=== PATIENT | female | born 1955 | race Caucasian/White ===

== ENCOUNTER → 2020-03-30 15:27 | Outpatient (CLI) | payer BC, SELFPAY ==
--- NOTE | ~2020-03-30 | MM_ITS ---
EXAMINATION: MM screening [facility] BI w rachell HISTORY: Screening mammogram TECHNIQUE: Craniocaudal and mediolateral oblique 3-D tomosynthesis images were obtained and synthetic 2-D images were generated. CAD analysis was submitted and interpreted. COMPARISON: 08/20/2008, 10/01/2004 BREAST PARENCHYMAL COMPOSITION: The breasts are almost entirely fatty. FINDINGS: A stable mass of the lower left breast has the appearance of an intramammary lymph node in this considered benign given the lack of interval change. There is no evidence of suspicious mass, ca lcification, or architectural distortion to suggest malignancy in either breast. There has been no buenrostro spicious interval change. IMPRESSION: 1. No mammographic evidence of malignancy. 2. Recommend routine screening mammography in one year. BI-RADS Category 2: Benign finding(s). Reviewed, dictated and finalized at location A. ER
== END ==
PROVIDERS: PCP Internal Medicine; Visit Provider Internal Medicine
DX: Z12.31 Encounter for screening mammogram for malignant neoplasm of breast (principal)
CPT/HCPCS: 77063; 77067

== ENCOUNTER 2020-04-30 10:58 | Outpatient (NON) | payer MEDICARE, SELFPAY ==
[2020-04-30 22:00] LABS: SARS-CoV-2 RNA PCR Positive
== END 2020-04-30 10:59 ==
PROVIDERS: PCP Internal Medicine; Visit Provider Internal Medicine
DX: U07.1 COVID-19 (principal)
CPT/HCPCS: 87635; C9803; U0003

== ENCOUNTER → 2020-08-13 15:31 | Outpatient (CLI) | payer MEDICARE, SELFPAY ==
--- NOTE | ~2020-08-13 | XR_ITS ---
XR knee RT 3V 08/13/2020 15:51 Indication: Right knee pain Procedure: 3 views right knee Comparison: . No prior studies for comparison. Findings: Mild tricompartment osteoarthritis of the right knee. No significant joint effusion. No for eign bodies. No acute fracture or traumatic malalignment. Impression: 1: Mild tricompartment osteoarthritis of the right knee. Reviewed, dictated and finalized at location B. Impression: 1: Mild tricompartment osteoarthritis of the right knee.
== END ==
PROVIDERS: PCP Internal Medicine; Visit Provider Internal Medicine
DX: M17.11 Unilateral primary osteoarthritis, right knee (principal)
CPT/HCPCS: 73562

== ENCOUNTER → 2021-02-08 16:20 | Outpatient (CLI) | payer MEDICARE, SELFPAY ==
--- NOTE | ~2021-02-08 | XR_ITS ---
XR foot RT min 3V DATE: 02/08/2021 16:31 INDICATION: Right foot pain. No injury. TECHNIQUE: 4 views COMPARISON: None FINDINGS: There is prominent plantar and posterior calcaneal enthesopathy; no associated periostitis or erosive change. There is mild osteophyte is at the first metatarsophalangeal joint. Osteoarthritic changes are noted at the interphalangeal joints. No fracture, dislocation, periosteal reaction or bone destruction is evident. IMPRESSION: Prominent plantar and posterior calcaneal enthesopathy Osteoarthritis at the first metatarsophalangeal joint, interphalangeal joints Reviewed, dictated and finalized at location B.
== END ==
PROVIDERS: PCP Internal Medicine; Visit Provider Internal Medicine
DX: M79.671 Pain in right foot (principal); M77.31 Calcaneal spur, right foot
CPT/HCPCS: 73630

== ENCOUNTER 2021-03-04 13:20 | Outpatient (CLI) | payer MEDICARE, SELFPAY ==
--- NOTE | ~2021-03-04 | US_ITS ---
EXAMINATION: US right upper quadrant DATE: 03/04/2021 14:16 INDICATION: Epigastric abdominal pain. TECHNIQUE: Multiple grayscale and Doppler ultrasound images of the abdomen were obtained. COMPARISON: None FINDINGS: The visualized portions of the head, body, and tail of the pancreas are normal. The liver i s normal without focal lesion. No liver surface nodularity. There is normal flow in main portal vein. The gallbladder is normal in size and contains gallstones. No gallbladder wall thickening or sonogra phic Gavin sign. The common duct is normal and measures 4 mm. IMPRESSION: 1. Cholelithiasis. No evidence of acute cholecystitis. Reviewed, dictated and finalized at location A.
--- NOTE | ~2021-03-04 | US_ITS ---
EXAMINATION: US aorta [facility] scrn DATE: 03/04/2021 14:17 INDICATION: Abdominal aortic aneurysm screening. TECHNIQUE: Grayscale, color Doppler, and pulsed Doppler images of the aorta and common iliac arteries were obtained. COMPARISON: None. FINDINGS: The aorta is normal in caliber. The right common iliac artery is normal in caliber. The left common i liac artery is normal in caliber. IMPRESSION: 1. No abdominal aortic aneurysm. Reviewed, dictated and finalized at location A.
== END 2021-03-04 13:21 | disposition home or self-care (01) ==
PROVIDERS: PCP Internal Medicine; Visit Provider Internal Medicine
DX: R10.13 Epigastric pain (principal); R11.10 Vomiting, unspecified; K80.20 Calculus of gallbladder without cholecystitis without obstruction
CPT/HCPCS: 76705; 76706

== ENCOUNTER 2021-03-23 09:52 | Outpatient (CLI) | payer MEDICARE, SELFPAY ==
--- NOTE | 2021-03-23 09:59 | ECG_ITS ---
Measurements Intervals [place] Rate: 64 P: 42 UT: 174 QRS: -15 QRSD: 102 T: 23 QT: 391 QTc: 405 Interpretive Statements SINUS RHYTHM POOR R WAVE PROGRESSION, ANTERIOR LEADS BORDERLINE T WAVE ABNORMALITY- ANTEROLATERAL LEADS BORDERLINE ECG Electronically Signed On 03-23-2021 11:08:45 [employer] INVESTIGATOR by Evangelista Naranjo D.O.
[2021-03-23 10:28] LABS: Amylase 92 U/L (30-110); Anion Gap 8 mmol/L (8-16); Blood Urea Nitrogen 20 mg/dL (7-17); Calcium 9.6 mg/dL (8.4-10.2); Carbon Dioxide 33 mmol/L (22-30); Chloride 100 mmol/L (98-107); Estimated Glomerular Filt Rate > 60; Glucose 99 mg/dL (65-110); Lipase 85 U/L (23-300); Potassium 3.3 mmol/L (3.4-5.0); Sodium 141 mmol/L (137-145)
== END 2021-03-23 09:53 | disposition home or self-care (01) ==
LOC: ANHSURGERY 09:56
PROVIDERS: Anesthesiology; PCP Internal Medicine; Visit Provider Surgery
DX: Z01.818 Encounter for other preprocedural examination (principal); K80.20 Calculus of gallbladder without cholecystitis without obstruction; I10 Essential (primary) hypertension
CPT/HCPCS: 36415; 80048; 82150; 83690; 86850; 86900; 86901; 93005

== ENCOUNTER 2021-03-31 00:45 | Day surgery (SDC) | payer MEDICARE, SELFPAY ==
[2021-03-22 13:27] VITALS: BMI 38.0
--- NOTE | 2021-03-22 14:39 | PC.NURSE ---
Report to the Outpatient Waiting Room, entrance under the green pavilion located off [facility], at time __1000 on date __03/31/21 . OR Time: __1200 . - You and your visitor will be asked a series of questions to screen for COVID 19 for your protection. - A mask is required within the hospital. - Only one visitor is allowed at this time. Patient visitors will be guided where to wait when not with patient. Preoperative COVID Testing Requirements: No COVID Test needed if: (proof is required; if not received patient will have Rapid Test prior to entry) - Patient has received COVID Vaccine at least 14 days prior to procedure date or - Patient has positive COVID test result within last 90 days of surgery date. COVID Test needed if above criteria is not met If not COVID vaccinated a COVID test must be conducted within 72 hours of surgery and patient is asked to isolate self from time of testing until procedure. You will go to the [facility] for your COVID testing. The [facility] is located at the corner of [address] [facility]. You will only be called if COVID results are positive and your surgeon may reschedule your elective surgery date. Patients may have clear liquids (water, carbonated beverages, clear teas, apple juice) until 3 hours prior to surgery with a maximum of 20 ounces. - No food from midnight until time of surgery - Infants may have breast milk until 4 hours before surgery, infant formula 6 hours prior to surgery. - Children will be allowed to drink immediately following surgery. If applicable, please bring a bottle or sippy cup to assist with drinking. Juice, water, soda, and popsicles are readily available. For infants on formula, please bring formula the day of surgery. Pacifiers are allowed. Take the following medications with a SIP of water the morning of surgery: ____NONE Medications to discontinue per physician _ALL VITAMINS AND SUPPLEMENTS 3 DAYS PRE OP Date to take last dose_03/27/21 Please no make-up, nail [place], hairspray, perfume, deodorant, or body powder the day of surgery. No jewelry (including any body piercings) or valuables the day of surgery, leave them at home. Please take a shower or bath the night before, or the morning of, surgery with an antibacterial soap. Wear comfortable, loose fitting clothing. Children are encouraged to wear pajamas. - Jewelry must be removed prior to entering the operating room. Rings and piercings that are not removed may be cut off. - The hospital will not accept responsibility for valuables. - Please leave all valuables, including medications, at home the day of surgery. HIBICLENS SHOWER MORNING OF SURGERY If you are going home after surgery, a licensed bull driver must drive you home. - NO public transportation without another adult. - We recommend that an adult stay with you for 24 hours following discharge. - We also recommend that you do not drive, make important decision, drink alcoholic beverages, or take any drugs that were not prescribed by your health care provider for at least 24 hours after your discharge time. For Pediatric surgeries, we recommend two adults accompany the child home (only one inside the building at this time). Follow any additional instructions given to you from your surgeon. Telephone instructions given to _PATIENT and asked if any additional questions and then verbalized understanding. Patient advised to call surgeon office or pre surgery nurse liaison [phone] if any additional questions.
[2021-03-31] VITALS (10 sets, daily range): BP systolic 124–167; BP diastolic 64–84; PULSE 49–73; RESP 11–16; TEMP 36–36.2; O2SAT 93–100
[2021-03-31] MEDS: ACETAMINOPHEN 500 MG TABLET 1000 MG PO (10:22)
[2021-03-31] MEDS: KETOROLAC 15 MG/ML VIAL (*BKC) IV PUSH (10:23)
[2021-03-31] MEDS: LACTATED RINGERS 1,000 ML 30 ML IV CONT ×2 (10:31→13:06)
--- NOTE | 2021-03-31 10:52 | P.PNAN_ITS ---
Anes - Initial Pre Proc Eval Procedure: Operation Date: 03/31/21 12:00 Proposed Procedures p Laparoscopic Cholecystectomy - Tejal Howard MD Date/Time: 03/31/21 10:52 Surgeon: Tejal Howard MD Pre Op Diagnosis: chronic cholecystitis with stones Patient Data Age: 65 Gender: F Height: 1.68 m Weight: 107.05 kg Allergies Allergy/AdvReac Type Severity Reaction Status Date / Time No Known Allergies Allergy Verified 03/22/21 13:12 Home Medications Medication Instructions Recorded Confirmed Type albuterol sulfate 90 mcg/actuation 1 inhalation INHALATION Q4H PRN 01/14/20 03/22/21 History aerosol inhaler hydrochlorothiazide 25 mg tablet 25 mg PO DAILY #90 tablet 01/19/21 03/22/21 Rx biotin 5 mg PO DAILY 03/22/21 03/22/21 History glucos sul [id number]-Mn 1 cap PO DAILY 03/22/21 03/22/21 History [Glucosamine Chondroitin] Patient hx anesthesia problems: none Family hx anesthesia problems: none Results Review: All pre-operative results and documents have been reviewed as part of the pre-operative evaluation. [facility] Past Medical History Medical History Essential (primary) hypertension Surgical History Surgical History H/O: hysterectomy History of thumb surgery Family History Family History Mother Hypertension Uterine cancer Sibling Asthma Father , Age 84 Heart problem Dementia Malignant neoplasm of prostate Social History Social History Smoking status: Never smoker Alcohol intake: current Living arrangements: with family Spiritual care concerns: No Anes - Eval Final PreProcedure Day of Procedure 03/31/21 10:52 Patient weight: obese Heart: regular rate and rhythm Lungs: clear to auscultation Airway: Mallampati scale class III Neurological: alert and oriented Last oral intake: >/= 8 hours ASA classification: III Emergent: no Anesthetic plan: proceed Anesthesia type and monitoring: general ETT and standard monitoring Results Review: All pre-operative results and documents have been reviewed as part of the pre-operative evaluation. Informed Consent: The patient's anesthetic plan and its attendant risks and benefits were discussed with the patient/family/POA. Questions were solicited and answers provided to the satisfaction of the patient/family/POA.
--- NOTE | 2021-03-31 11:32 | WPDHPUPDATE1 ---
History and Physical Update Update Date/Time: 03/31/21 11:32 History and Physical has been reviewed, including an updated exam of the patient. There are NO changes in the patient's condition. Risks, benefits, and alternatives have been discussed and questions answered. Patient agrees to proceed with procedure.
[2021-03-31] MEDS: BUPIVACAINE HCL 0.5% PF 30 ML VIAL INFILTRATE (12:00)
[2021-03-31] MEDS: ceFAZolin 2 GM/D5W 50 ML 2 GM/50 ML BAG IVPB (12:00)
--- NOTE | 2021-03-31 12:53 | W.PM.PROC2 ---
Procedure Note - Detailed Date of Procedure 03/31/21 Pre-op Diagnosis chronic cholecystitis with stones Post-op Diagnosis same Procedure Performed Laparoscopic cholecystectomy Surgeon Tejal Howard MD Anesthesia general Indications 65-year-old female presented to the office complaining of postprandial right upper quadrant abdominal pain associated with nausea and vomiting. Workup including imaging significant for chronic cholecystitis, cholelithiasis. Findings Cholecystitis with cholelithiasis Description of Procedure The patient was taken to the operating room placed in the supine position. After adequate induction of general anesthesia, the patient was prepped and draped in normal sterile fashion. A time-out was then performed to verify the patient's identity as well as the procedure being performed. I then made a 5 mm incision in the infraumbilical region. Through this, a Veress needle was placed into the peritoneal cavity and CO2 gas was then insufflated. After adequate pneumoperitoneum was achieved, the Veress needle was removed and a 5 mm optiview trocar was placed through this incision under direct visualization. I then placed the laparoscope through this trocar site and under direct visualization placed a further 12 mm subxiphoid port as well as 2 additional 5 mm ports in the right upper abdomen. The gallbladder was then identified and was noted to be moderately inflamed and distended. I was able to place a grasper at the dome of the gallbladder and this was retracted anterior and cephalad up over the liver. A 2nd retractor was then placed at the infundibulum and retracted laterally, this allowed visualization of the triangle of Calot. I then was able to visualize the cystic duct in its entirety from its proximal insertion into the gallbladder, to its distal junction with the common hepatic/common bile duct junction. At this point, I carefully skeletonized the proximal cystic duct with the [place] dissector. I then clipped and transected the proximal cystic duct. Next I visualized the cystic artery. Again the artery was skeletonized, clipped, and transected. I then used the Bovie cautery to take down the peritoneal attachments of the gallbladder off the liver bed. This was somewhat difficult given the amount of inflammation in the posterior space. Once the gallbladder specimen was completely detached, an endo-pouch was placed through the 12 mm port site. I then placed the gallbladder specimen into the Endo pouch and removed the endo-pouch from the 12 mm port site. The specimen will now be sent to pathology for further review. I then copiously irrigated the right upper quadrant. Hemostasis was noted in the liver bed, the clips were noted to be in good position on both the cystic duct stump and the cystic artery stump. No other pathology was noted in the right upper quadrant. I then moved the laparoscope to the subxiphoid port. No iatrogenic injury or other pathology was noted in the lower abdomen. I then closed the 12 mm trocar site under direct visualization using the Edison cone and 0 Vicryl suture. At this point, the abdomen was desufflated and all ports removed. All port sites were then closed with 4.O Monocryl subcuticular sutures. Dermabond was placed on each incision. The patient tolerated the procedure well, was extubated in the operating room postoperative and will be transferred to the recovery room in stable condition Estimated Blood Loss 5 Drains No Packing No Pathology yes Complications No immediate complications Condition stable Disposition PACU
[2021-03-31] MEDS: fentaNYL CITRATE INJ (*CRX) 100 MCG/2 ML VIAL 25 MCG IV PUSH ×4 (13:29→13:57)
--- NOTE | 2021-03-31 14:17 | SUR.PHASEI ---
1405; DR SAINI AT BEDSIDE. PT HAVING NSR AND SINUS ARRYTHMIA ON MONITOR. PT ASYMPTOMATIC. NO NEW ORDERS AT THIS TIME.
--- NOTE | 2021-03-31 14:38 | SUR.PHASEI ---
PT STATES SHE IS DOING BETTER . RATES PAIN 5/10. DOESNT WANT ANY MORE PAIN MED AT THIS TIME. READY TO SEE TRISTIN.
[2021-03-31] MEDS: oxyCODONE HCL (*CRX) 5 MG TAB IR PO (15:02)
[2021-03-31] MEDS: ONDANSETRON INJ 4 MG/2 ML VIAL IV PUSH (15:43)
== END 2021-03-31 15:52 | disposition home or self-care (01) ==
PROVIDERS: PCP Internal Medicine; Visit Provider Surgery
PROC: 0FT44ZZ Resection of Gallbladder, Percutaneous Endoscopic Approach (ICD-10-PCS; CPT 47562; principal; 2021-03-31 12:00)
DX: K80.10 Calculus of gallbladder with chronic cholecystitis without obstruction (principal); I10 Essential (primary) hypertension; Z79.51 Long term (current) use of inhaled steroids; E66.9 Obesity, unspecified; Z68.38 Body mass index [BMI] 38.0-38.9, adult
CPT/HCPCS: 47562; 36415; 80048; 82150; 83690; 86850; 86900; 86901; 88304; 93005; A9270; J0690; J1100; J1885; J2250; J2405; J2704; J2710; J3010; J7030; J7120

== ENCOUNTER 2022-02-03 10:22 | Outpatient (CLI) | payer MEDICARE, SELFPAY ==
[2022-02-03 20:01] LABS: Alanine Aminotransferase 17 U/L (6-35); Albumin Level 4.1 g/dL (3.5-5.1); Alkaline Phosphatase 84 U/L (38-126); Anion Gap 7 mmol/L (8-16); Aspartate Amino Transferase 32 U/L (14-36); Bilirubin,Total 0.7 mg/dL (0.2-1.3); Blood Urea Nitrogen 22 mg/dL (7-17); Calcium 9.2 mg/dL (8.4-10.2); Carbon Dioxide 33 mmol/L (22-30); Chloride 99 mmol/L (98-107); Cholesterol 153 mg/dL (0-200); Estimated Glomerular Filt Rate > 60; Glucose 98 mg/dL (65-110); HDL Direct 49 mg/dL; Potassium 3.2 mmol/L (3.4-5.0); Sodium 139 mmol/L (137-145); Triglycerides 68 mg/dL (<150)
[2022-02-03 20:12] LABS: LDL Cholesterol Direct 89 mg/dL
== END 2022-02-03 10:23 | disposition home or self-care (01) ==
LOC: ANHGOSHLAB 10:24
PROVIDERS: PCP Family Medicine; Visit Provider Family Medicine
DX: I10 Essential (primary) hypertension (principal); Z13.220 Encounter for screening for lipoid disorders
CPT/HCPCS: 36415; 80053; 80061

== ENCOUNTER → 2022-02-03 10:49 | Outpatient (CLI) | payer MEDICARE, SELFPAY ==
--- NOTE | ~2022-02-03 | XR_ITS ---
XR shoulder LT min 2V DATE: 02/03/2022 11:04 INDICATION: Left shoulder anterior pain TECHNIQUE: 4 views COMPARISON: None FINDINGS: No fracture or dislocation, periosteal reaction or bone destruction is evident. There is in ferior spurring at the left acromioclavicular joint. There is calcification in the region of the rota tor cuff which may indicate calcific tendinitis. IMPRESSION: Degenerative spurring at left acromioclavicular joint Possible calcific tendinitis of the left rotator cuff Reviewed, dictated and finalized at location B.
--- NOTE | ~2022-02-03 | XR_ITS ---
XR shoulder RT min 2V DATE: 02/03/2022 11:04 INDICATION: Right shoulder pain TECHNIQUE: 4 views COMPARISON: July 07, 2016 right shoulder FINDINGS: There is mild degenerative spurring at the right acromion clavicular joint. No fracture or dislocation, periosteal reaction or bone destruction or abnormal soft tissue calcifica tion of the right shoulder is evident. IMPRESSION: Mild degenerative change at the right acromioclavicular joint Reviewed, dictated and finalized at location B.
== END ==
PROVIDERS: PCP Family Medicine; Visit Provider Family Medicine
DX: M25.512 Pain in left shoulder (principal); M25.511 Pain in right shoulder; M77.8 Other enthesopathies, not elsewhere classified
CPT/HCPCS: 73030

== ENCOUNTER → 2022-08-22 11:46 | Outpatient (CLI) | payer MEDICARE, SELFPAY ==
--- NOTE | ~2022-08-22 | XR_ITS ---
Right Knee Technique: AP, lateral, and sunrise views were obtained. Clinical History: Pain Findings: No fracture or dislocation is seen. Osseous alignment is anatomic. Mild to moderate tricomp artmental degenerative spurring noted. Soft tissues are unremarkable. No joint effusion is seen. Impression: Mild to moderate tricompartmental degenerative spurring. Reviewed, dictated and finalized at [facility]. Impression: Mild to moderate tricompartmental degenerative spurring.
--- NOTE | ~2022-08-22 | XR_ITS ---
Left Knee Technique: AP, lateral, and sunrise views were obtained. Clinical History: Pain Findings: No fracture or dislocation is seen. Osseous alignment is anatomic. Moderate tricompartmenta l degenerative spurring noted. Soft tissues are unremarkable. No joint effusion is seen. Impression: Moderate tricompartmental degenerative spurring. Reviewed, dictated and finalized at location . Impression: Moderate tricompartmental degenerative spurring.
== END ==
PROVIDERS: PCP Family Medicine; Visit Provider Family Medicine
DX: M25.562 Pain in left knee (principal); M25.561 Pain in right knee; M77.9 Enthesopathy, unspecified
CPT/HCPCS: 73564

== ENCOUNTER → 2023-01-27 13:47 | Outpatient (CLI) | payer MEDICARE, SELFPAY ==
--- NOTE | ~2023-01-27 | MM_ITS ---
EXAMINATION: MM screening [facility] BI w rachell HISTORY: Screening mammogram TECHNIQUE: Craniocaudal and mediolateral oblique 3-D tomosynthesis images were obtained and synthetic 2-D images were generated. CAD analysis was submitted and interpreted. COMPARISON: 03/30/2020 bilateral screening mammogram examination BREAST PARENCHYMAL COMPOSITION: The breasts are almost entirely fatty. FINDINGS: Stable occasional small circumscribed opacities of each breast. There is no evidence of fausto picious mass, calcification, or architectural distortion to suggest malignancy in either breast. Ther e has been no suspicious interval change. IMPRESSION: 1. No mammographic evidence of malignancy. 2. Recommend routine screening mammography in one year. BI-RADS Category 2: Benign finding(s). Reviewed, dictated and finalized at location A.
== END ==
PROVIDERS: PCP Obstetrics & Gynecology; Visit Provider Obstetrics & Gynecology
DX: Z12.31 Encounter for screening mammogram for malignant neoplasm of breast (principal)
CPT/HCPCS: 77063; 77067

== ENCOUNTER 2023-02-23 15:12 | Outpatient (CLI) | payer MEDICARE, SELFPAY ==
[2023-02-23 19:24] LABS: Alanine Aminotransferase 15 U/L (6-35); Albumin Level 4.2 g/dL (3.5-5.1); Alkaline Phosphatase 76 U/L (38-126); Anion Gap 5 mmol/L (8-16); Aspartate Amino Transferase 40 U/L (14-36); Bilirubin,Total 0.8 mg/dL (0.2-1.3); Blood Urea Nitrogen 23 mg/dL (7-17); Calcium 9.2 mg/dL (8.4-10.2); Carbon Dioxide 35 mmol/L (22-30); Chloride 98 mmol/L (98-107); Cholesterol 175 mg/dL (0-200); Estimated Glomerular Filt Rate > 60; Glucose 89 mg/dL (65-110); HDL Direct 47 mg/dL; Potassium 3.3 mmol/L (3.4-5.0); Sodium 138 mmol/L (137-145); Triglycerides 65 mg/dL (<150)
[2023-02-23 19:35] LABS: LDL Cholesterol Direct 96 mg/dL
== END 2023-02-23 15:13 | disposition home or self-care (01) ==
LOC: ANHGOSHLAB 15:14
PROVIDERS: PCP Obstetrics & Gynecology; Visit Provider Family Medicine
DX: Z13.220 Encounter for screening for lipoid disorders (principal); Z13.228 Encounter for screening for other metabolic disorders
CPT/HCPCS: 36415; 80053; 80061

== ENCOUNTER 2023-03-13 15:16 | Outpatient (CLI) | payer MEDICARE, SELFPAY ==
[2023-03-13 16:31] LABS: Hematocrit 37.9 % (37.0-47.0); Hemoglobin 12.5 g/dL (12.0-15.0); Mean Corpuscular Hemoglobin 31.6 pg (26-34); Mean Corpuscular Volume 95.7 fl (80-100); Mean Platelet Volume 11.9 fl (7.4-10.4); Platelet Count Result 229 k/mm3 (150-375); Red Blood Count 3.96 M/mm3 (4.2-5.4); Red Cell Distribution Width 13.2 % (11.5-14.5); White Blood Count 8.5 K/mm3 (4.5-10.0)
[2023-03-13 16:41] LABS: CRP 0.8 mg/dL (<1.0)
[2023-03-13 17:15] LABS: Erythrocyte Sedimentation Rate 43 mm/hr (0-20)
[2023-03-17 20:40] LABS: Immunoglobulin A 495 mg/dL (70-320); TTG IGA AB <1.0 U/mL (<15.0)
== END 2023-03-13 15:17 | disposition home or self-care (01) ==
PROVIDERS: PCP Family Medicine; Visit Provider Nurse Practitioner
DX: K52.9 Noninfective gastroenteritis and colitis, unspecified (principal)
CPT/HCPCS: 36415; 82784; 85027; 85652; 86140; 86364

== ENCOUNTER 2023-03-15 10:49 | Outpatient (CLI) | payer MEDICARE, SELFPAY ==
[2023-03-22 21:12] LABS: Calprotectin, Stool 719 mcg/g; Pancreatic Elastase, Stool >500 mcg/g
== END 2023-03-15 10:50 | disposition home or self-care (01) ==
PROVIDERS: PCP Family Medicine; Visit Provider Nurse Practitioner
DX: K52.9 Noninfective gastroenteritis and colitis, unspecified (principal); R15.2 Fecal urgency; R15.9 Full incontinence of feces; R19.8 Other specified symptoms and signs involving the digestive system and abdomen
CPT/HCPCS: 36415; 82653; 83993; 84443

== ENCOUNTER 2023-04-20 06:11 | Day surgery (SDC) | payer MEDICARE, SELFPAY ==
[2023-04-03 13:41] VITALS: BMI 37.0
--- NOTE | 2023-04-19 16:59 | WPDANESEPPF ---
Anes - Initial Pre Proc Eval Procedure: Operation Date: 04/20/23 08:00 Proposed Procedures p Colonoscopy - Henri Noguera MD Date/Time: 04/19/23 16:59 Surgeon: Henri Noguera MD Pre Op Diagnosis: Noninfective Gastroenteritis and Colitis Patient Data Age: 68 Gender: F Height: 1.68 m Weight: 104 kg Allergies Allergy/AdvReac Type Severity Reaction Status Date / Time No Known Allergies Allergy Verified 04/20/23 06:45 Home Medications Medication Instructions Recorded Confirmed Type glucosamine sulf dipot 1 cap PO DAILY 03/22/21 04/20/23 History chlr,msm,chond 550 mg-C 30 mg-diogo 1 mg capsule (Glucosamine Chondroitin) fluocinolone 0.025 % topical cream 1 applic topical BID #60 grams 02/03/22 04/20/23 Rx latanoprost 0.005 % eye drops 1 drp EACH EYE QPM 02/03/22 04/20/23 History hydrochlorothiazide 25 mg tablet 25 mg PO DAILY #90 tabs 04/18/22 04/20/23 Rx cetirizine 10 mg capsule (All Day 10 mg PO DAILY PRN Allergy Symptoms 03/13/23 04/20/23 History Allergy (cetirizine)) colestipol 1 gram tablet 1 g PO BID #60 tabs 03/13/23 04/20/23 Rx glucosamine sulfate 500 mg tablet 500 mg PO DAILY 03/13/23 04/20/23 History (Cidatrine (glucosamine)) diphenoxylate-atropine 2.5 1 tablet PO TID PRN Diarrhea 04/03/23 04/20/23 History mg-0.025 mg tablet (Lomotil) Patient hx anesthesia problems: none Family hx anesthesia problems: none Results Review: All pre-operative results and documents have been reviewed as part of the pre-operative evaluation. [facility] Past Medical History Medical History (Updated 03/13/23 @ 15:29 by Jeanne Lauren APRN) Borborygmi Chronic diarrhea Diarrhea Essential (primary) hypertension Fecal incontinence Fecal urgency Surgical History Surgical History H/O: hysterectomy History of thumb surgery Hx laparoscopic cholecystectomy 03/31/21 Family History Family History Mother Hypertension Uterine cancer Sibling Asthma Father , Age 84 Heart problem Dementia Malignant neoplasm of prostate Social History Social History Smoking status: Never smoker Alcohol intake: never Substance use: never Substance use type: does not use Lack of Transportation: No Lack of Food: Never True Current Housing: I Have Housing Concerned About Future Housing: No Difficulty Paying Gas/Electric Bills: No Difficulty Paying for Meds: No Currently Unemployed: No Difficulty w/ Childcare or Family Care: No Living arrangements: with family Occupation/Education: retired Spiritual care concerns: No Anes - Eval Final PreProcedure Day of Procedure 04/19/23 16:59 Patient weight: obese Heart: regular rate and rhythm Lungs: clear to auscultation Airway: Mallampati scale class II Neurological: alert and oriented Last oral intake: >/= 8 hours ASA classification: III Emergent: no Anesthetic plan: proceed Anesthesia type and monitoring: general GIVS and standard monitoring Results Review: All pre-operative results and documents have been reviewed as part of the pre-operative evaluation. Informed Consent: The patient's anesthetic plan and its attendant risks and benefits were discussed with the patient/family/POA. Questions were solicited and answers provided to the satisfaction of the patient/family/POA.
[2023-04-20 06:50] VITALS: BP 139/70; PULSE 70; RESP 18; TEMP 36.6; O2SAT 100
[2023-04-20] MEDS: LACTATED RINGERS 1,000 ML 150 ML IV CONT (06:54)
--- NOTE | 2023-04-20 07:48 | PM.HPGS ---
History of Present Illness History of Present Illness Consent: Risks, benefits, and alternatives have been discussed and questions answered. Patient agrees to proceed with procedure. Chief complaint: Noninfective Gastroenteritis and Colitis Narrative: Emerald Shelton is a 68 year old female with ibs but lately with more diarrhea normally after eating, tried different OTC products, she is post cholecystectomy but could not afford cholestyramine. Negative serology for celiac, normal pancreatic elastase, elevated calprotectin in stool. Never had colonoscopy Review of Systems Constitutional: Constitutional: Denies headache(s) and Denies weakness Eyes: Eyes: Denies blurry vision ENT: Reports Normal hearing present, Denies headache(s) and Denies neck pain Cardiovascular: Cardiovascular: Denies chest pain and Denies dyspnea Respiratory: Respiratory: Denies dyspnea Gastrointestinal: Gastrointestinal: Reports no additional gastrointestinal complaints Genitourinary: Genitourinary: Denies dysuria Musculoskeletal: Musculoskeletal: Denies neck pain Integumentary/Breasts: Skin/Breast: Denies dry skin Neurologic: Reports Normal hearing present, Denies headache(s) and Denies weakness Psychiatric: Psychiatric: Denies anxiety Endocrine: Endocrine: Denies change in body appearance Hematologic/Lymphatic: Hematologic/Lymphatic: Denies easy bleeding Allergic/Immunologic: Allergic/Immunologic: Denies urticaria PMFSH Past Medical History Medical History (Updated 03/13/23 @ 15:29 by Jeanne Lauren APRN) Borborygmi Chronic diarrhea Diarrhea Essential (primary) hypertension Fecal incontinence Fecal urgency Surgical History Surgical History (Updated 04/20/23 @ 07:50 by Henri Noguera MD) H/O: hysterectomy History of thumb surgery Hx laparoscopic cholecystectomy 03/31/21 Family History Family History Mother Hypertension Uterine cancer Sibling Asthma Father , Age 84 Heart problem Dementia Malignant neoplasm of prostate Social History Social History Smoking status: Never smoker Alcohol intake: never Substance use: never Substance use type: does not use Lack of Transportation: No Lack of Food: Never True Current Housing: I Have Housing Concerned About Future Housing: No Difficulty Paying Gas/Electric Bills: No Difficulty Paying for Meds: No Currently Unemployed: No Difficulty w/ Childcare or Family Care: No Living arrangements: with family Occupation/Education: retired Spiritual care concerns: No Meds Home Medications and Allergies Home Medications Medication Instructions Recorded Confirmed Type glucosamine sulf dipot 1 cap PO DAILY 03/22/21 04/20/23 History chlr,msm,chond 550 mg-C 30 mg-diogo 1 mg capsule (Glucosamine Chondroitin) fluocinolone 0.025 % topical cream 1 applic topical BID #60 grams 02/03/22 04/20/23 Rx latanoprost 0.005 % eye drops 1 drp EACH EYE QPM 02/03/22 04/20/23 History hydrochlorothiazide 25 mg tablet 25 mg PO DAILY #90 tabs 04/18/22 04/20/23 Rx cetirizine 10 mg capsule (All Day 10 mg PO DAILY PRN Allergy Symptoms 03/13/23 04/20/23 History Allergy (cetirizine)) colestipol 1 gram tablet 1 g PO BID #60 tabs 03/13/23 04/20/23 Rx glucosamine sulfate 500 mg tablet 500 mg PO DAILY 03/13/23 04/20/23 History (Cidatrine (glucosamine)) diphenoxylate-atropine 2.5 1 tablet PO TID PRN Diarrhea 04/03/23 04/20/23 History mg-0.025 mg tablet (Lomotil) Allergies Allergy/AdvReac Type Severity Reaction Status Date / Time No Known Allergies Allergy Verified 04/20/23 06:45 Vital Signs Vital Signs - 24 hr 04/20/23 06:50 Temperature 97.8 F Pulse Rate 70 Respiratory Rate 18 Blood Pressure 139/70 Pulse Oximetry 100 Oxygen Delivery Room Air Exam Const: General: comfortable and no acute
[2023-04-20 08:17] VITALS: BP 105/55; PULSE 64; RESP 16; O2SAT 98
[2023-04-20 08:27] VITALS: BP 119/59; PULSE 55; RESP 18; O2SAT 100
[2023-04-20 08:37] VITALS: BP 109/59; PULSE 59; RESP 18; O2SAT 100
--- NOTE | 2023-04-20 12:20 | WPDANESPN ---
Anes - Prog Note Post-Op Date/Time: 04/20/23 12:20 Cardiovascular status: normal Respiratory status: normal Airway patency: baseline Mental status: baseline Post-Op hydration status: normal Vital Signs: Last Vital Signs Temp 36.6 C 04/20/23 06:50 Pulse 59 L 04/20/23 08:37 Resp 18 04/20/23 08:37 BP 109/59 L 04/20/23 08:37 Pulse Ox 100 04/20/23 08:37 O2 Del Method Room Air 04/20/23 08:37 Pain Score (VAS): 0 I/O: Intake & Output 04/19/23 04/20/23 04/20/23 23:59 07:59 15:59 Intake Total 500 Balance 500 Post-procedural complaints: none Patient Feedback: Patient satisfied with anesthetic care. Other Findings: Patient vital signs back to baseline. Patient denies nausea and vomiting. Patient's pain under control. Patient OK for discharge.
== END 2023-04-20 08:51 | disposition home or self-care (01) ==
PROVIDERS: PCP Family Medicine; Visit Provider Internal Medicine Gastroenterology
PROC: 0DJD8ZZ Inspection of Lower Intestinal Tract, Via Natural or Artificial Opening Endoscopic (ICD-10-PCS; CPT 45378; principal; 2023-04-20 08:00)
DX: R19.7 Diarrhea, unspecified (principal); Z12.11 Encounter for screening for malignant neoplasm of colon
CPT/HCPCS: 45380

== ENCOUNTER 2023-04-20 07:00 | Outpatient (NON) | payer MEDICARE, SELFPAY | END 2023-04-20 07:01 | disposition home or self-care (01) | PROVIDERS: PCP Family Medicine; Visit Provider Internal Medicine Gastroenterology | DX: K52.9 Noninfective gastroenteritis and colitis, unspecified (principal) | CPT/HCPCS: 88305 ==

== ENCOUNTER 2023-09-04 11:23 | Outpatient (CLI) | payer MEDICARE, SELFPAY ==
--- NOTE | ~2023-09-04 | XR_ITS ---
XR knee LT min 4V 09/04/2023 11:43 Indication: Left knee pain Procedure: 4 views left knee Comparison: No prior studies for comparison. Findings: There is moderate tricompartment osteoarthritis. No significant joint effusion. No foreign bodies. Impression: 1: Moderate tricompartment osteoarthritis. Reviewed, dictated and finalized at location B. Impression: 1: Moderate tricompartment osteoarthritis.
== END 2023-09-04 11:24 | disposition home or self-care (01) ==
LOC: ANHIMG 11:23
PROVIDERS: PCP Family Medicine; Visit Provider Family Medicine
DX: M17.12 Unilateral primary osteoarthritis, left knee (principal)
CPT/HCPCS: 73564

== ENCOUNTER 2023-11-06 12:27 | Emergency (ER) | payer MEDICARE, SELFPAY ==
[2023-11-06 12:43] VITALS: BP 154/70; PULSE 75; RESP 16; TEMP 36.8; O2SAT 98
--- NOTE | 2023-11-06 12:56 | ED.EXTPRO ---
HPI - Extremity Problem General Chief complaint: Extremity Problem,Nontraumatic Stated complaint: left thumb swollen and pain Time Seen by Provider: 11/06/23 12:57 Source: patient Mode of arrival: ambulatory Limitations: no limitations History of Present Illness HPI Narrative: 60-year-old female presents for complaint of left thumb pain and swelling. Onset this morning. Pt denies numbness, tingling or weakness. She states at baseline she has limited range of motion to the thumb to the previous surgery and lack of adherence to the exercises. Related Data Home Medications Medication Instructions Recorded Confirmed glucosamine sulf dipot 1 cap PO DAILY 03/22/21 04/24/23 chlr,msm,chond 550 mg-C 30 mg-diogo 1 mg capsule (Glucosamine Chondroitin) latanoprost 0.005 % eye drops 1 drp EACH EYE QPM 02/03/22 04/24/23 glucosamine sulfate 500 mg tablet 500 mg PO DAILY 03/13/23 04/24/23 (Cidatrine (glucosamine)) Allergies Allergy/AdvReac Type Severity Reaction Status Date / Time No Known Allergies Allergy Verified 04/24/23 14:35 Review of Systems Review of Systems: CONSTITUTIONAL: Denies body aches, fever, chills CARDIOVASCULAR: Denies chest pain, palpitations, or edema. RESPIRATORY: Denies cough or dyspnea. GASTROINTESTINAL: Denies abdominal pain, nausea, vomiting, or diarrhea. SKIN: Denies rash, itching, or wounds. MUSCULOSKELETAL: left thumb pain and swelling NEUROLOGIC: Denies headache, numbness, tingling, or weakness. All systems reviewed & are unremarkable except as noted in HPI and below PMFSH Past Medical History Medical History Borborygmi Chronic diarrhea Colon cancer screening Diarrhea Elevated erythrocyte sedimentation rate Elevated fecal calprotectin Essential (primary) hypertension Fecal incontinence Fecal urgency Surgical History Surgical History H/O: hysterectomy History of thumb surgery Hx laparoscopic cholecystectomy 03/31/21 Family History Family History Mother Hypertension Uterine cancer Sibling Asthma Father , Age 84 Heart problem Dementia Malignant neoplasm of prostate Social History Social History Smoking status: Never smoker Alcohol intake: never Substance use: never Substance use type: does not use Lack of Transportation: No Lack of Food: Never True Current Housing: I Have Housing Concerned About Future Housing: No Difficulty Paying Gas/Electric Bills: No Difficulty Paying for Meds: No Currently Unemployed: No Difficulty w/ Childcare or Family Care: No Living arrangements: with family Occupation/Education: retired Spiritual care concerns: No Comments At time of signature, I have reviewed and agree with nursing past medical, surgical, social and family history unless otherwise noted. Please see nursing chart for further information. There is no relevant family history pertinent to the presenting complaint Exam Narrative: GENERAL: Well-appearing CHEST: Speaks in full sentences. No respiratory distress. HEART: Regular rate and rhythm. Normal and equal peripheral pulses. EXTREMITIES: Left thumb swelling and tenderness to the IP joint; limited range of motion endorses pain with movement. Digit has normal strength and sensation, No ecchymosis. No open wounds or obvious deformity; alignment normal, pulse palpable and equal bilaterally, skin warm, dry, pink. Capillary refill less than 3 seconds. SKIN: Warm, dry, no rash. NEURO: Alert and oriented x3. PSYCH: Normal mood and affect Course Course Emergency Course: Patient is aware of diagnosis, understands and agrees to treatment plan. Anticipatory guidance given. Patient agrees to follow-up as directed and is aware of reasons to seek c
== END 2023-11-06 13:11 | disposition home or self-care (01) ==
PROVIDERS: Emergency Provider Nurse Practitioner Family; PCP Family Medicine
DX: R22.32 Localized swelling, mass and lump, left upper limb (principal); I10 Essential (primary) hypertension
CPT/HCPCS: 99213; G0463

== ENCOUNTER 2024-02-26 14:47 | Outpatient (CLI) | payer MEDICARE, SELFPAY ==
[2024-02-26 19:09] LABS: Basophils Absolute Auto 0.1 K/mm3 (0.0-0.1); Basophils Percent Auto 0.9 % (0.2-1.2); Eosinophils Absolute Auto 0.2 K/mm3 (0-0.3); Eosinophils Percent Auto 2.6 % (0-4.4); Hematocrit 36.8 % (37.0-47.0); Hemoglobin 12.6 g/dL (12.0-15.0); Immature Granulocyte Absolute 0.06 K/mm3 (0.00-0.031); Immature Granulocyte Percent A 0.9 % (0-0.5); Lymphocytes Absolute Auto 1.17 K/mm3 (0.9-3.2); Mean Corpuscular HGB Conc 34.2 g/dl (32-36); Mean Corpuscular Volume 93.4 fl (80-100); Mean Platelet Volume 11.2 fl (7.4-10.4); Monocytes Absolute Auto 0.4 K/mm3 (0.1-0.6); Monocytes Percent Auto 5.8 % (2.6-8.5); Neutrophils Absolute Auto 4.7 K/mm3 (1.3-6.7); Neutrophils Percent Auto 71.8 % (45.5-73.1); Platelet Count Result 255 k/mm3 (150-375); Red Blood Count 3.94 M/mm3 (4.2-5.4); White Blood Count 6.5 K/mm3 (4.5-10.0)
[2024-02-26 19:15] LABS: LDL Cholesterol Direct 55 mg/dL
[2024-02-26 19:19] LABS: Alanine Aminotransferase 33 U/L (6-35); Albumin Level 4.1 g/dL (3.5-5.1); Alkaline Phosphatase 73 U/L (38-126); Anion Gap 7 mmol/L (4-12); Aspartate Amino Transferase 41 U/L (14-36); Bilirubin,Total 0.8 mg/dL (0.2-1.3); Blood Urea Nitrogen 17 mg/dL (7-17); Calcium 8.9 mg/dL (8.4-10.2); Carbon Dioxide 36 mmol/L (22-30); Chloride 97 mmol/L (98-107); Cholesterol 122 mg/dL (0-200); Estimated Glomerular Filt Rate > 60; Glucose 95 mg/dL (65-110); HDL Direct 39 mg/dL; Potassium 2.7 mmol/L (3.4-5.0); Sodium 140 mmol/L (137-145); Triglycerides 80 mg/dL (<150)
[2024-02-26 19:45] LABS: Thyroid Stimulating Hormone Reflex 0.981 uIU/mL (0.465-4.68)
== END 2024-02-26 14:48 | disposition home or self-care (01) ==
LOC: ANHGOSHLAB 14:48
PROVIDERS: PCP Family Medicine; Visit Provider Family Medicine
DX: L40.9 Psoriasis, unspecified (principal); Z13.220 Encounter for screening for lipoid disorders; R53.83 Other fatigue; Z13.228 Encounter for screening for other metabolic disorders; Z13.29 Encounter for screening for other suspected endocrine disorder
CPT/HCPCS: 36415; 80053; 80061; 84443; 85025

== ENCOUNTER 2024-03-07 09:40 | Outpatient (CLI) | payer MEDICARE, SELFPAY ==
[2024-03-07 19:31] LABS: Anion Gap 7 mmol/L (4-12); Blood Urea Nitrogen 23 mg/dL (7-17); Calcium 9.3 mg/dL (8.4-10.2); Carbon Dioxide 30 mmol/L (22-30); Chloride 104 mmol/L (98-107); Estimated Glomerular Filt Rate > 60; Glucose 86 mg/dL (65-110); Potassium 4.1 mmol/L (3.4-5.0); Sodium 141 mmol/L (137-145)
== END 2024-03-07 09:41 | disposition home or self-care (01) ==
LOC: ANHGOSHLAB 09:41
PROVIDERS: PCP Family Medicine; Visit Provider Family Medicine
DX: Z13.228 Encounter for screening for other metabolic disorders (principal)
CPT/HCPCS: 36415; 80048

== ENCOUNTER 2024-10-08 09:47 | Outpatient (CLI) | payer MEDICARE, SELFPAY ==
--- OUTSIDE RECORDS SUMMARY | 2024-10-08 09:53 | XMS_ITS | Clinical Summary ---
Author Organization [facility] Address [address] [place] [address] Care Team Providers Care Custody Officer Name Role Phone Benjy Sol MD Primary Care Provider Source Comments [facility],non-owned Affiliates and Associated Physician Practices is amultiple site organization consisting of ambulatory clinics and hospital sitesin [place], [place], [place] and [place]. This disclosure is being madepursuant to the Care Everywhere program and may not contain all information available regarding this patient. Last updated 18.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 Localized swelling, mass and lump, unspecified 0 07/11/2011 Family History Medical History Relation Name Comments Cancer Father Dementia Father Cancer Mother Relation Name Status Comments Father Mother Social History Tobacco Use Types Packs/Day Years Used Date Smoking Tobacco: Never Alcohol Use Standard Drinks/Week Comments Yes 0 (1 standard drink = 0.6 oz pur e alcohol) Comments Unknown Sex and Gender Information Value Date Recorded Sex Assigned at Not on file 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 Gender Identity Not on file Sexual Orientation Not on file Plan of Treatment Health Maintenance Due Date Last Done Comments BONE DENSITY TESTING 1955 COLOGUARD (AGES 45-75) - COL ON CA SCREENING 1955 COLON MONITORING 1955 COLONOSCOPY - COLON CA SCREENING 1955 CT COLONOGRAPHY - COLON CA SCREENING 1955 Colorectal Cancer Screening 1955 FIT - COLON CA SCREENING 1955 FLEX SIG - COLON CA SCREENING 1955 LIPID TESTING 1955 MAMMOGRAM 1955 HEPATITIS C SCREENING 04/10/1973 DTAP/TDAP/TD VACCINES (1 - Tdap) 1974 PNEUMOCOCCAL VACCINE 50+ (1 of 1 - PCV) 2005 ZOSTER VACCINE (1 of 2) 2005 COVID-19 VACCINE (1 - 2023-2 5 season) 2024 DEPRESSION SCREENING 05/15/2024 MEDICARE AWV CALENDAR YEAR 2024 INFLUENZA VACCINE (Season Ended) 2025 Respiratory Syncytial Virus (RSV) Vaccine Pt: or over 60 yrs (1 - 1-dose 75+ series) 2030 HEPATITIS B VACCINE Aged Out No longe r eligible based on patient's age to complete this topic HIB VACCINE Aged Out No longer eligi ble based on patient's age to complete this topic HPV VACCINE Aged Out No longer eligi ble based on patient's age to complete this topic MENINGOCOCCAL (Group B) VACC INE SHARED DECISION-MAKING Aged Out No longer eligibl e based on patient's age to complete this topic MENINGOCOCCAL GROUPS A/C/Y/W VACCINE Aged Out No longer eligible b ased on patient's age to complete this topic Insurance [facility] MEDICARE ADV SELF PAY NO INSURANCE Member Subscriber Plan / Payer (Ef fective for All Dates) Name:Jersey Benitez Member ID:Not on file Relation to Subscriber:Not on file Name:JERSEY BENITEZ Subscriber ID:Not on file Address: [address] [place] [address] [place] [address] Payer ID:Not on file Group ID:Not on file Type:Self Pay Address: [place], [place] UHC MANAGED MEDICARE ADV Care Teams Custody Officer Relationship Specialty Start Date End Date Benjy Sol MD [address] [place] [address] PCP - General 06/17/11
[2024-10-08 11:19] LABS: Alanine Aminotransferase 15 U/L (6-35); Albumin Level 4.3 g/dL (3.5-5.1); Alkaline Phosphatase 80 U/L (38-126); Anion Gap 6 mmol/L (4-12); Aspartate Amino Transferase 36 U/L (14-36); Bilirubin,Total 0.9 mg/dL (0.2-1.3); Blood Urea Nitrogen 33 mg/dL (7-17); Calcium 9.4 mg/dL (8.4-10.2); Carbon Dioxide 33 mmol/L (22-30); Chloride 101 mmol/L (98-107); Estimated Glomerular Filt Rate 56; Glucose 95 mg/dL (65-110); Potassium 3.8 mmol/L (3.4-5.0); Sodium 140 mmol/L (137-145)
== END 2024-10-08 09:48 | disposition home or self-care (01) ==
LOC: ANHGOSHLAB 09:48
PROVIDERS: PCP Clinical Nurse Specialist; Visit Provider Clinical Nurse Specialist
DX: R19.7 Diarrhea, unspecified (principal); I10 Essential (primary) hypertension
CPT/HCPCS: 36415; 80053

== ENCOUNTER 2024-10-09 08:38 | Outpatient (CLI) | payer MEDICARE, SELFPAY ==
--- OUTSIDE RECORDS SUMMARY | 2024-10-09 08:41 | XMS_ITS | Clinical Summary ---
Author Organization [facility] Address [address] [place] [address] Care Team Providers Care Well Tester Name Role Phone Benjy Sol MD Primary Care Provider Source Comments [facility],non-owned Affiliates and Associated Physician Practices is amultiple site organization consisting of ambulatory clinics and hospital sitesin [place], [place], [place] and [place]. This disclosure is being madepursuant to the Care Everywhere program and may not contain all information available regarding this patient. 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, [place] UHC MANAGED MEDICARE ADV Care Teams Well Tester Relationship Specialty Start Date End Date Benjy Sol MD [address] [place] [address] PCP - General 06/17/11
[2024-10-09 19:35] LABS: Basophils Absolute Auto 0.1 K/mm3 (0.0-0.1); Basophils Percent Auto 0.8 % (0.2-1.2); Eosinophils Absolute Auto 0.2 K/mm3 (0-0.3); Eosinophils Percent Auto 3.6 % (0-4.4); Hematocrit 36.1 % (37.0-47.0); Hemoglobin 11.8 g/dL (12.0-15.0); Immature Granulocyte Absolute 0.01 K/mm3 (0.00-0.031); Immature Granulocyte Percent A 0.2 % (0-0.5); Lymphocytes Absolute Auto 2.15 K/mm3 (0.9-3.2); Lymphocytes Percent Auto 32.5 % (18.3-44.2); Mean Corpuscular HGB Conc 32.7 g/dl (32-36); Mean Corpuscular Hemoglobin 31.9 pg (26-34); Mean Corpuscular Volume 97.6 fl (80-100); Mean Platelet Volume 11.7 fl (7.4-10.4); Monocytes Absolute Auto 0.4 K/mm3 (0.1-0.6); Monocytes Percent Auto 6.6 % (2.6-8.5); Neutrophils Absolute Auto 3.7 K/mm3 (1.3-6.7); Neutrophils Percent Auto 56.3 % (45.5-73.1); Platelet Count Result 225 k/mm3 (150-375); Red Cell Distribution Width 12.9 % (11.5-14.5); White Blood Count 6.6 K/mm3 (4.5-10.0)
== END 2024-10-09 08:39 | disposition home or self-care (01) ==
LOC: ANHGOSHLAB 08:39
PROVIDERS: PCP Clinical Nurse Specialist; Visit Provider Clinical Nurse Specialist
DX: R19.7 Diarrhea, unspecified (principal); I10 Essential (primary) hypertension
CPT/HCPCS: 36415; 85025

== ENCOUNTER 2025-01-16 10:57 | Outpatient (CLI) | payer MEDICARE, SELFPAY ==
--- OUTSIDE RECORDS SUMMARY | 2025-01-16 11:38 | XMS_ITS | Clinical Summary ---
Author Organization [email or web address] Address [address] [place] [address] Care Team Providers Care Bin Cleaner Name Role Phone Benjy Sol MD Primary Care Provider Source Comments [email or web address],non-owned Affiliates and Associated Physician Practices is amultiple site organization consisting of ambulatory clinics and hospital sitesin [place], [place], [place] and [place]. This disclosure is being madepursuant to the Care Everywhere program and may not contain all information available regarding this patient. 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 Gender Identity Not on file Sexual Orientation [...] MEDICARE AWV CALENDAR YEAR 2024 INFLUENZA VACCINE (#1) 2025 Respiratory Syncytial Virus (RSV) Vaccine Pt: [...] patient's age to complete this topic Insurance [facility] MEDICARE ADV SELF PAY NO INSURANCE Member Subscriber Plan / Payer (Ef fective for All Dates) Name:Jersey Benitez Member ID:Not on file Relation to Subscriber:Not on file Name:JERSEY BENITEZ Subscriber ID:Not on file Address: [address] [place] [address] [place] [address] Payer ID:Not on file Group ID:Not on file Type:Self Pay Address: [place], [place] UHC MANAGED MEDICARE ADV Care Teams Bin Cleaner Relationship Specialty Start Date End Date Benjy Sol MD [address] [place] [address] PCP - General 06/17/11
--- NOTE | 2025-02-07 20:15 | WPDSLEEPSTUD ---
Sleep Study Date of Study: 01/16/25 Ordering Provider: DARRIAN Nolen Interpreting Physician: Tamara Deleon MD Sleep Study Type: Polysomnogram Height: 1.68 m Weight: 107.501 kg Body Mass Index: 38.2 Neck Circumference (inches): 17 [place]: 11 Reason for Sleep Study Hypersomnolence Sleep History Emerald Shelton is a 69-year-old woman with excessive daytimes sleepiness and poor quality sleep. She never awakens from sleep short of breath. She frequently wakes at night with heartburn, belching or coughing.??She frequently snores, and always snores loudly enough that others complain. She rarely has trouble sleeping when she has a cold. She rarely wakes up gasping for breath during the night. She occasionally has breathing problems at night observed by others. She never sweats excessively at night. She never notices her heart pounding or beating irregularly during the night. She occasionally falls asleep during the day. She frequently falls asleep involuntarily, never falls asleep while driving. She occasionally experiences loss of muscle tone with strong emotion. She never feels paralyzed on waking or falling asleep. She constantly experiences vivid dreams upon waking or falling asleep. She never feels afraid of going to sleep. She constantly has nightmares. She never recalls her dreams. She constantly has thoughts racing through her mind. She never feels sad or depressed. She rarely feels anxiety. She never notices parts of her body jerk. She rarely kicks during the night. She rarely feels crawling or aching feelings in her legs. She constantly feels leg pain at night. She never has morning jaw pain, and rarely grinds her teeth at night. She frequently feels bothered by pain during the day, is constantly awakened by pain during the night. She constantly wakes up feeling stiff in the morning, constantly wakes feeling sore or achy in the morning. She rarely awakens with pain in her neck, spine, or joints. Normal bedtime is 9:30 p.m., falling asleep within 1-2 hours, waking between 3 and 4 times at night. when she wakes at night, she goes to the bathroom then watches television, staying awake another 2 or 3 hours. She wakes at 7:00 a.m., reports getting 6-7 hours of interrupted sleep per night. she takes naps in the afternoon or evening. A nap lasting 10-15 minutes may be refreshing. She is usually drowsy for 2 hours or longer after waking. she reports a 5 lb weight gain in the last year. Habits:??Tobacco: Never smoker Caffeine: 1 serving per week Alcohol: occasional Recreational substances: none PMF Past Medical History Medical History Colon cancer screening Elevated fecal calprotectin Elevated erythrocyte sedimentation rate Diarrhea Borborygmi Fecal incontinence Fecal urgency Chronic diarrhea Essential (primary) hypertension Surgical History Surgical History Hx laparoscopic cholecystectomy 03/31/21 History of thumb surgery H/O: hysterectomy Family History Family History Mother Hypertension Uterine cancer Sibling Asthma Father , Age 84 Heart problem Dementia Malignant neoplasm of prostate Social History Social History Smoking status: Never smoker Alcohol intake: current Alcohol use details: Drinks a couple yearly Substance use: never Substance use type: does not use Lack of Transportation: No Lack of Food: Never True Current Housing: I Have Housing Concerned About Future Housing: No Difficulty Paying Gas/Electric Bills: No Difficulty Paying for Meds: No Currently Unemployed: No Difficulty w/ Childcare or Family Care: No Living arrangements: with family Occupation/Education: retired Spiritual care concerns: No Medications Home Medications ?Medication ?Instructions ?Recorded ?Confirmed ?Type glucosamine sulf dipot 1 cap PO DAILY 03/22/21 10/08/24 History chlr,msm,chond 550 mg-C 30 mg-diogo 1 mg capsule (Glucosamine Chondroitin) latanoprost 0.005 % eye drops 1 drp EACH EYE QPM 02/03/22 10/08/24 History glucosamine sulfate 500 mg tablet 500 mg PO DAILY 03/13/23 10/08/24 History (Cidatrine (glucosamine)) scopolamine base 1 mg over 3 days 1 patch transdermal Q3D PRN motion 11/20/23 09/04/24 Rx transdermal patch sickness #4 ea triamcinolone acetonide 0.1 % 1 applic topical TID PRN Eczema 06/10/24 09/04/24 Rx topical cream #30 grams colestipol 1 gram tablet See Rx Instructions .Route 07/01/24 10/08/24 Rx .COMPLEX #60 tabs multivitamin (Daily Multi-Vitamin 1 tablet PO DAILY 09/04/24 10/08/24 History tablet) hydrochlorothiazide 25 mg tablet 25 mg PO DAILY #90 tabs 10/08/24 Rx meloxicam 15 mg tablet 15 mg PO DAILY #30 tabs 10/10/24 Rx omeprazole 40 mg capsule,delayed See Rx Instructions .Route 11/25/24 Rx release .COMPLEX #30 caps Sleep Procedure A full night polysomnogram using the Xanitos multi-channel system recorded the standard physiologic parameters including EEG, EOG, submentalis EMG, anterior tibialis EMG, EKG, body position, nasal and oral airflow using nasal pressure sensor and thermistor. Respiratory parameters of chest and abdominal movements were recorded with Respiratory Inductance Plethysmography belts. Oxygen saturation was recorded by pulse oximetry. Video monitoring was also performed. Sleep stages, periodic limb movements, and EEG arousals were scored in 30 second epochs according to the criteria of the AASM Scoring Manual. The Apnea-Hypopnea Index was calculated using CMS guidelines for definition of hypopnea with 4% O2 desaturations while scoring respiratory events. the patient did not meet criteria early enough in the night to proceed with CPAP so this was conducted as a full night polysomnogram. No sleep aid was taken at the beginning of the study. She did not take a sleep aid at the beginning of this study. She did not meet criteria early enough in the night to proceed with a split night study so this was conducted as a full night basic nocturnal polysomnogram. Sleep Architecture The total recording time was 468.1 minutes. The total sleep time was 320.0 minutes. Sleep latency was 36.5 minutes. REM latency was 278.5 minutes. Sleep efficiency was 68.4%. The patient had 27 awakenings for an awakening index of 5.1. Wake after sleep onset time was 111.5 minutes. The patient spent 19.0 minutes, 5.9% of total sleep time in Stage N1. The patient spent 218.0 minutes, 68.1% in Stage N2. The patient spent 43.5 minutes, 13.6% in Stage N3. The patient spent 39.5 minutes, 12.3% in Stage REM sleep. Respiratory Analysis The patient had 33 hypopneas, 3 obstructive apneas, no mixed apneas, and 1 central apnea for an overall Apnea Hypopnea Index of 6.9. The REM Apnea Hypopnea Index was 30.4. The NREM Apnea Hypopnea Index was 5.3. The patient had a Central Apnea Hypopnea Index of 0.2. There were no Respiratory Effort Related Arousals. The Respiratory Disturbance Index is 12.2 events per hour. There was no evidence of Demetris-Dias Respirations. The supine apnea-hypopnea index was 6.0 and the nonsupine AHI was 7.7, very close, no significant positional difference. Arousals There were 121 total arousals for an arousal index of 22.7. There were 78 spontaneous arousals for an index of 14.6. There were 7 arousals due to respiratory events for an index of 1.3. There were 25 arousals due to periodic limb movements for an index of 4.7. There were 12 arousals due to isolated limb movements for an index of 2.3. Periodic Limb Movements The patient had 14 isolated limb movements with an index of 2.6. The patient had 45 periodic limb movements with an index of 8.4. Patient had a total of 59 limb movements with a total limb movement index of 11.1. Oximetry Data The patient had an average oxygen saturation of 93.8% in sleep with a minimum oxygen saturation of 87.0% and a maximum oxygen saturation of 98.0%. The patient had 36 oxygen desaturations that were 4% or greater resulting in an Oxygen Desaturation Index of 6.8. The patient spent 0.3 minutes, 0.1% of total sleep time with an oxygen saturation below 88%. Snoring Profile Snoring was mild to moderate throughout the night. Cardiac Profile The EKG showed normal sinus rhythm. The patient had an average pulse rate of 66 bpm with a minimum pulse of rate of 56 bpm and a maximum pulse rate of 91 bpm. No arrhythmias noted. EEG Profile Unremarkable, no evidence of seizures. Assessment and Plan Assessment and Plan (1) Obstructive sleep apnea: Code(s): G47.33 - Obstructive sleep apnea (adult) (pediatric) Status: Acute Assessment and Plan: This basic nocturnal polysomnogram on 01/16/2025 shows mild obstructive sleep apnea, overall apnea-hypopnea index is 6.9 with desaturation 87%. She did not meet criteria early enough in the night to proceed with a split night protocol. She meets criteria for PAP therapy with mild obstructive sleep apnea and a medical comorbidity, hypertension, which allows her to proceed with treatment. Options include Resmed AirSense 11 AutoPAP 5-15 cm H2O, CPAP mask/filters/tubing and humidifier chamber. This should be used with all episodes of sleep. Compliance should be reviewed within 31-90 days of starting therapy for usage greater than 4 hours per night greater than 70% of the nights. The patient should be asked about symptoms such as excessive daytime sleepiness, quality of sleep, decreased nocturia, increased mental functioning such as memory, mood, and concentration. Another option is an oral device fitted by a sleep dentist. The patient would need to have good dentition and no TMJ issues to proceed with an oral appliance. The patient has some unusual features not generally seen in obstructive sleep apnea including constantly experiencing vivid dreamlike scenes upon awakening or falling asleep, constantly having nightmares and constantly having racing thoughts. She occasionally has loss of muscle tone with strong emotion. She reports involuntarily falling asleep frequently but not while driving. Sleep deprivation can cause some of these symptoms. She does not have a history of mood disorder but consider evaluating for this. She describes difficulty falling asleep. This may be due to excessive daytime napping and should be curtailed. See below. BMI is 38. Weight management is advised. Clinical data suggests that weight loss of 10% can reduce the severity of respiratory events and snoring and improve AHI by as much as 25%. She has a fixed bedtime and wake time, however wakes often at night and turns on the television which will prevent her from returning to sleep easily. Please see these recommendations for good sleep hygiene. Recommendations to improve sleep quality include: ? Practice a bedtime routine and keep the same sleep schedule including bedtime and wake up time, even on the weekends. Consistency makes it much easier to fall asleep and wake easily. ? If you have trouble sleeping at night, avoid naps, especially in the late afternoon. However, short naps lasting approximately 20 minutes can help alleviate daytime fatigue, sleepiness, and even provide cognitive benefit. Naps longer than 30 minutes can cause sleep inertia, a period of reduced alertness and cognitive performance after waking. ? Exercise daily. ? Maintain a sleep environment conducive to sleep. The bedroom should be comfortably cool. In population studies, nocturnal environmental light and noise significantly impact sleep quality and quantity. Use of blackout curtains, ear plugs, or sound machines may help promote an optimal sleep environment for individuals with sleep disruptions due to environmental stimuli. ? Sleep on a comfortable mattress and pillows. ? Regular bright light exposure in the mornings may help to maximize alertness and maintain a regular circadian rhythm. Studies in extreme latitudes where sunlight is minimal in the winter have found that an hour of exposure to white light in the morning helped subjects go to sleep earlier and wake earlier. Exposure to blue light in the morning may have more robust effects on the stability of the circadian rhythm and has been shown to improve daytime fatigue and sleepiness. ? Avoid cigarettes, caffeine, and heavy meals in the evening. While alcohol use does seem to reduce the time it takes to fall asleep, studies have reported that evening alcohol intake can cause more waking time or light sleep in the second half of the night and reduce self-reported sleep quality. Evening nicotine is associated with lower sleep efficiency and more awake time during the night. ? Wind down with quiet activities that may promote sleep, such as reading with a dim light. Avoid use of electronics at least 30 minutes before habitual bedtime and in the middle of the night if nocturnal awakenings occur. The blue light emitted from computer screens and hand-held devices can suppress natural melatonin production, resulting in difficulty falling asleep; however, the exact duration of use and intensity of lighting that cause this effect are variable in the literature. ? If you cannot sleep, do not look at a clock. Go into another room and do something relaxing until you feel drowsy enough to fall asleep again. Then return to bed. Data The data obtained during this sleep study is adequate for interpretation. Certification This sleep study has been reviewed by a board certified sleep medicine physician.
[2025-02-07 20:16] VITALS: BMI 38.2
== END 2025-01-17 05:45 | disposition home or self-care (01) ==
LOC: ANHCSM 11:01
PROVIDERS: PCP Clinical Nurse Specialist; Visit Provider Clinical Nurse Specialist
DX: G47.33 Obstructive sleep apnea (adult) (pediatric) (principal); G47.10 Hypersomnia, unspecified
CPT/HCPCS: 95810

== ENCOUNTER 2025-02-25 09:57 | Outpatient (CLI) | payer MEDICARE, SELFPAY ==
--- OUTSIDE RECORDS SUMMARY | 2025-02-25 11:22 | XMS_ITS | Clinical Summary ---
Author Organization [facility] Address [address] [place] [address] Care Team Providers Care Business Trainer Name Role Phone Benjy Sol MD Primary Care Provider [phone] Source Comments [facility],non-owned Affiliates and Associated Physician Practices is amultiple site organization consisting of ambulatory clinics and hospital sitesin [place], [place], [place] and [place]. This disclosure is being madepursuant to the Care Everywhere program and may not contain all information available regarding this patient. 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 Gender Identity Not on file Sexual Orientation [...] 2005 ZOSTER VACCINE (1 of 2) 2005 DEPRESSION SCREENING 05/15/2024 MEDICARE AWV CALENDAR YEAR 2024 COVID-19 VACCINE (1 - 2023-2 5 season) 2025 INFLUENZA VACCINE (#1) 2025 Respiratory Syncytial Virus [...] patient's age to complete this topic Insurance [facility] MEDICARE ADV SELF PAY NO INSURANCE Member Subscriber Plan / Payer (Ef fective for All Dates) Name:Jersey Benitez Member ID:Not on file Relation to Subscriber:Not on file Name:JERSEY BENITEZ Subscriber ID:Not on file Address: [address] [place] [address] [place] [address] Payer ID:Not on file Group ID:Not on file Type:Self Pay Address: [place], [place] UHC MANAGED MEDICARE ADV Care Teams Business Trainer Relationship Specialty Start Date End Date Benjy Sol MD [address] [place] [address] PCP - General 06/17/11
[2025-02-25 13:07] LABS: Alanine Aminotransferase 14 U/L (6-35); Albumin Level 4.2 g/dL (3.5-5.1); Alkaline Phosphatase 86 U/L (38-126); Anion Gap 7 mmol/L (4-12); Aspartate Amino Transferase 25 U/L (14-36); Bilirubin,Total 0.7 mg/dL (0.2-1.3); Blood Urea Nitrogen 40 mg/dL (7-17); Calcium 9.5 mg/dL (8.4-10.2); Carbon Dioxide 31 mmol/L (22-30); Chloride 103 mmol/L (98-107); Cholesterol 163 mg/dL (0-200); Estimated Glomerular Filt Rate 47; Glucose 85 mg/dL (65-110); HDL Direct 55 mg/dL; Potassium 3.9 mmol/L (3.4-5.0); Sodium 141 mmol/L (137-145); Total Protein 8.0 g/dL (6.3-8.2); Triglycerides 78 mg/dL (<150)
[2025-02-25 13:09] LABS: Iron 68 ug/dL (37-170)
[2025-02-25 13:22] LABS: Percent Iron Saturation 27 % (20-50)
[2025-02-25 13:47] LABS: MALB Creatinine Ratio 5.4 mg/g (0-30)
[2025-02-25 13:51] LABS: Ferritin 147.00 ng/mL (11.1-264)
[2025-02-25 14:03] LABS: Vitamin B12 366.0 pg/mL (239-931)
[2025-02-25 18:47] LABS: Hemoglobin A1C 5.1 % (<5.7)
== END 2025-02-25 09:58 | disposition home or self-care (01) ==
LOC: ANHGOSHLAB 09:58
PROVIDERS: PCP Clinical Nurse Specialist; Visit Provider Clinical Nurse Specialist
DX: D64.9 Anemia, unspecified (principal); I10 Essential (primary) hypertension; R73.01 Impaired fasting glucose; R74.8 Abnormal levels of other serum enzymes
CPT/HCPCS: 36415; 80053; 80061; 82043; 82607; 82728; 83036; 83540; 83550

== ENCOUNTER 2025-04-12 09:01 | Emergency (ER) | payer MEDICARE, SELFPAY ==
--- OUTSIDE RECORDS SUMMARY | 2025-04-12 09:03 | XMS_ITS | Clinical Summary ---
Author Organization [facility] Address [address] [place] [address] Care Team Providers Care Director Radiation Oncology Name Role Phone Benjy Sol MD Primary Care Provider [phone] Source Comments [facility],non-owned Affiliates and Associated Physician Practices is amultiple site organization consisting of ambulatory clinics and hospital sitesin [place], [place], [place] and [place]. This disclosure is being madepursuant to the Care Everywhere program and may not contain all information available regarding this patient. Last updated 18.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 Gender Identity Not on file Sexual Orientation [...] CALENDAR YEAR 2024 COVID-19 VACCINE (1 - 2024-2 6 season) 2025 INFLUENZA VACCINE (#1) 2025 Respiratory [...] patient's age to complete this topic Insurance [facility] MEDICARE ADV SELF PAY NO INSURANCE Member Subscriber Plan / Payer (Ef fective for All Dates) Name:Jersey Benitez Member ID:Not on file Relation to Subscriber:Not on file Name:JERSEY BENITEZ Subscriber ID:Not on file Address: [address] [place] [address] [place] [address] Payer ID:Not on file Group ID:Not on file Type:Self Pay Address: [place], [place] [employer] MANAGED MEDICARE ADV Care Teams Director Radiation Oncology Relationship Specialty Start Date End Date Benjy Sol MD [address] [place] [address] PCP - General 06/17/11
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
[2025-04-12 09:10] VITALS: BP 120/60; PULSE 74; RESP 18; TEMP 36.1; O2SAT 98
--- NOTE | 2025-04-12 09:50 | ED_ITS ---
HPI - Nausea/Vomiting/Diarrhea General Chief complaint: Nausea/Vomiting/Diarrhea Stated complaint: Diarrhea Time Seen by Provider: 04/12/25 09:15 69-year-old female Presents [facility] complaining diarrhea for 5 days. Patient reports having abdominal cramping and mild nausea. Patient denies any abdominal pain, fevers, body aches, chills, vomiting, black tarry stools, bloody stools. Patient has been able to keep fluids down. Patient reports brown watery diarrhea. Patient denies any blood or mucus in stools. Patient has a history of chronic diarrhea and she currently takes medications for it. And took a dose of Imodium yesterday with some relief. Patient denies recent travel outside the country. Source: patient and RN notes reviewed Mode of arrival: ambulatory Limitations: no limitations Related Data Home Medications ?Medication ?Instructions ?Recorded ?Confirmed ?Last Taken ?Type latanoprost 0.005 % eye drops 1 drp EACH EYE QPM 02/0302/25/25 04/19/23 History Allergies Allergy/AdvReac Type Severity Reaction Status Date / Time No Known Allergies Allergy Verified 04/12/25 09:15 Review of Systems Review of Systems: CONSTITUTIONAL: Denies fever, chills, body aches, or sweats. EYES: Denies visual changes, redness, or discharge. ENT: Denies rhinorrhea, congestion, sore throat, or otalgia. CARDIOVASCULAR: Denies chest pain, palpitations, or edema. RESPIRATORY: Denies cough or dyspnea. GASTROINTESTINAL: Denies abdominal pain, vomiting, bloody stools, hematochezia. Positive for nausea and diarrhea. GENITOURINARY: Denies dysuria or hematuria. SKIN: Denies rash or itching. MUSCULOSKELETAL: Denies back pain, joint pain, or myalgia. NEUROLOGIC: Denies headache, numbness, or weakness. PSYCHIATRIC: Denies anxiety or depression. All other systems reviewed are negative, except as documented in HPI. [facility] Past Medical History Medical History Colon cancer screening Elevated fecal calprotectin Elevated erythrocyte sedimentation rate Diarrhea Borborygmi Fecal incontinence Fecal urgency Chronic diarrhea Essential (primary) hypertension Surgical History Surgical History Hx laparoscopic cholecystectomy 03/31/21 History of thumb surgery H/O: hysterectomy Family History Family History Mother Hypertension Uterine cancer Sibling Asthma Father , Age 84 Heart problem Dementia Malignant neoplasm of prostate Social History Social History Smoking status: Never smoker Alcohol intake: current Alcohol use details: Drinks a couple yearly Substance use: never Substance use type: does not use Lack of Transportation: No Lack of Food: Never True Current Housing: I Have Housing Concerned About Future Housing: No Difficulty Paying Gas/Electric Bills: No Difficulty Paying for Meds: No Currently Unemployed: No Education: High School Diploma/GED Difficulty w/ Childcare or Family Care: No Living arrangements: with family Occupation/Education: retired Spiritual care concerns: No Exam Narrative: GENERAL: This is a well-nourished, well-developed adult, in no apparent distress. They are non ill-appearing, nontoxic appearing. HEAD: normocephalic, atraumatic. EYES: Sclera clear/white. Vision is grossly intact. Conjunctiva normal bilaterally. Extraocular movements intact. EARS: External ears normal, Hearing grossly intact. NOSE: External nose normal THROAT: Mucous membranes moist NECK: Normal range of motion CARDIOVASCULAR: Regular rate and rhythm. No clicks, gallops, rubs, or murmurs. RESPIRATORY: Respiratory rate normal, respiratory effort nonlabored, no respiratory distress. Lung sounds are clear auscultation. Breath sounds equal bilaterally. No adventitious lung sounds. GASTROINTESTINAL: Abdomen soft, flat, non-tender, nondistended. Bowel sounds are active. No hepato-splenomegaly, or palpable masses. No guarding or rigidity. No rebound tenderness. SKIN: warm, Dry, intact with no suspicious lesions or rash, good texture and turgor. NEURO: awake, alert, and oriented to person, place and time. There were no obvious focal neurologic abnormalities. EXTREMITIES: No joint tenderness, effusion, or edema noted. BACK: Nontender without deformity. No CVA tenderness. Course Course Emergency Course: Portions of this record may have been created with voice recognition software Level of Care: Express Care Visit Vital Signs Vital signs: Vital Signs Temperature 96.9 F L 04/12/25 09:10 Pulse Rate 74 04/12/25 09:10 Respiratory Rate 18 04/12/25 09:10 Blood Pressure 120/60 04/12/25 09:10 Pulse Oximetry 98 04/12/25 09:10 Oxygen Delivery Room Air 04/12/25 09:10 Temperature 96.9 F L 04/12/25 09:10 Pulse Rate 74 04/12/25 09:10 Respiratory Rate 18 04/12/25 09:10 Blood Pressure 120/60 04/12/25 09:10 Pulse Oximetry 98 04/12/25 09:10 Oxygen Delivery Room Air 04/12/25 09:10 MDM - Nausea/Vomiting/Diarrhea MDM Narrative Medical decision making narrative: Appears patient is doing with the chronic diarrhea flare up, will send patient home with dicyclomine for cramping. Informed patient she may take more Imodium to help with the diarrhea. Discussed supportive care. Patient is not appear clinically dehydrated. Moist mucous membranes, no tachycardia. Patient is nontoxic appearing, no apparent distress. No peritoneal findings on exam. No abdominal tenderness. Discussed physical exam findings. Advised supportive measures and signs/symptoms to go to the ER. Pt is appropriate for outpt treatment and f/u. Differential Diagnosis Differential diagnosis: Likely traveler's diarrhea, food poisoning, gastroenteritis, dehydration and other (Chronic diarrhea,) Discharge Plan Discharge Clinical Impression: Diarrhea Qualifiers: Diarrhea type: unspecified type Qualified Code(s): R19.7 - Diarrhea, unspecified Patient Disposition: Home Condition: Stable Instructions: Antibiotic Form, Chronic Diarrhea (ED) Additional Instructions: You may take Imodium 4mg (2 tablets) at once followed by 2mg (1 tablet) after each loose stool for a maximum of 16mg in a day. (8 doses). Once your diarrhea is controlled you may decrease the amout you are using to lowest dose to control your symptoms. Take dicylomine as needed for abdominal cramping. Continue to take your medications as prescribed. Drink plenty of fluids, hydrate with pedilyte for electrolyte supplementation. Start with a clear liquid diet and progress to a BRAT diet (bread, rice, apples, toast, oats, etc.) and progress diet as tolerated. Avoid foods and drinks that may worsen diarrhea such as caffiene, sugary drinks, lactose, spicy, fried foods, etc. Follow up with PCP or GI in 3-5 days for reevaluation. Go to ER if you develop black tarry stools, severe abdominal pain, fevers, bloody stools, vomiting, or any serious concerns. Patient Language: Gibraltarian Prescriptions: New dicyclomine 10 mg capsule 10 mg PO TID PRN (Reason: abdominal pain or cramping) Qty: 20 0RF No Action (DME) CPAP See Rx Instructions .Route .MEDSUPPLY Qty: 1 0RF Rx Instructions: Resmed AirSense 11 AutoPAP 5-15 cm H2O, CPAP mask/filters/tubing and humidifier chamber. latanoprost 0.005 % drops 1 drp EACH EYE QPM omeprazole 40 mg capsule,delayed release(DR/EC) See Rx Instructions .ROUTE .COMPLEX Qty: 30 6RF Dose Instruction: TAKE ONE (1) CAPSULE BY MOUTH EVERY DAY Rx Instructions: TAKE ONE (1) CAPSULE BY MOUTH EVERY DAY colestipol 1 gram tablet See Rx Instructions .ROUTE .COMPLEX Qty: 60 3RF Dose Instruction: TAKE ONE (1) TABLET BY MOUTH TWICE DAILY Rx Instructions: TAKE ONE (1) TABLET BY MOUTH TWICE DAILY hydrochlorothiazide 25 mg tablet 25 mg PO DAILY Qty: 90 1RF Follow-up/Referrals: Jose Eller DO [Primary Care Provider, Internal Medicine] Time of Disposition: 09:37
== END 2025-04-12 09:41 | disposition home or self-care (01) ==
PROVIDERS: PCP Internal Medicine
DX: R19.7 Diarrhea, unspecified (principal); I10 Essential (primary) hypertension
CPT/HCPCS: 99213; G0463